=== PATIENT | female | born 1945 | race Caucasian/White ===

== ENCOUNTER 2017-09-18 05:50 | Day surgery (SDC) | payer OTHER ==
[~2017-09-18 05:50] MED LIST: ASA81 MG PO; CLONAZEPAM0.5 MG PO; DIOVAN320 MG PO; GABAPENTIN400 MG PO; HUMALOG100 UNIT/1; JANUVIA100 MG PO; LAMISIL250 MG PO; LANTUS SOL100 UNIT/1; OMEPRAZOLE20 M1 PO; SIMVASTATIN20 MG PO; SYNTHROID75 MCG PO; TOPROL XL50 M1 PO; VITAMIN D5000 UNIT PO; [UNRECOGNIZED DRUG - OTHER] PO
[2017-09-18] MEDS ORDERED: TRAM1TAB98 PO (12:32)
[2017-09-18] MEDS ORDERED: DUI500 PO (12:32)
== END 2017-09-18 15:40 | disposition home or self-care (01) ==
LOC: CIR.AMB 05:50
DX: M20.11 Hallux valgus (acquired), right foot (principal); M21.611 Bunion of right foot